=== PATIENT | male | born 1960 | race Caucasian/White ===

== ENCOUNTER → 2017-03-29 09:17 | Emergency (ER) | payer OTHER ==
[2017-03-29 09:32] VITALS: BP 154/94
--- NOTE | 2017-03-29 10:53 | ED ---
Throat Pain/Nasal Congestion - HPI Summary HPI Summary: Patient presents to ED with CC of left eye pain which began last evening after shutting a window. He feels he may have something in the eye. However, after 10 minutes, the pain decreased and went away. Overnight and this morning he did not experience any pain until spontaneously started to feel a pain in the center of his eye. Pain is not worse or better with blinking. Hx of styes, but states feels different. Denies any health problems or any medications. Patient is a smoker. Has never been to an eye doctor, no contacts or glasses and denies any decreased vision. Endorses tearing and erythema of the conjunctiva. Denies sick contacts. Pain is 8/10, constant and burning. - History of Current Complaint Chief Complaint: EDEyeProblem Time Seen by Provider: 03/29/17 09:34 Hx Obtained From: Patient Onset/Duration: Sudden Onset Severity: Moderate Associated Signs And Symptoms: Positive: Negative - Epiglottits Risk Factors Epiglottis Risk Factors: Negative PMH/Surg Hx/FS Hx/Imm Hx Previously Healthy: Yes - Immunization History Hx Pertussis Vaccination: No Immunizations Up to Date: Unable to Obtain/Confirm Infectious Disease History: No Infectious Disease History: Denies: Traveled Outside the [place] in Last 30 Days - Social History Occupation: Employed Full-time Lives: With Family Alcohol Use: Weekly Hx Substance Use: No Substance Use Type: Reports: None Hx Tobacco Use: Yes Smoking Status (MU): Heavy Every Day Tobacco Smoker Review of Systems Constitutional: Negative Positive: Photophobia, Blurred Vision, Drainage, Erythema ENT: Negative Cardiovascular: Negative Respiratory: Negative Positive: no symptoms reported, see HPI Musculoskeletal: Negative Neurological: Negative Psychological: Normal All Other Systems Reviewed And Are Negative: Yes Physical Exam Triage Information Reviewed: Yes Vital Signs On Initial Exam: Initial Vitals Temp Pulse Resp BP Pulse Ox 98.4 F 71 16 154/94 99 03/29/17 09:31 03/29/17 09:31 03/29/17 09:31 03/29/17 09:31 03/29/17 09:31 Vital Signs Reviewed: Yes Appearance: Positive: Well-Appearing, Well-Nourished Skin: Positive: Warm, Skin Color Reflects Adequate Perfusion Head/Face: Positive: Normal Head/Face Inspection Eyes: Positive: Conjunctiva Inflammed, Discharge - copious clear fluid Neck: Positive: Supple, No Lymphadenopathy Respiratory/Lung Sounds: Positive: Clear to Auscultation, Breath Sounds Present Cardiovascular: Positive: Normal, RRR, Pulses are Symmetrical in both Upper and Lower Extremities Musculoskeletal: Positive: Normal, Strength/ROM Intact Neurological: Positive: Speech Normal Psychiatric: Positive: Normal Diagnostics - Vital Signs Vital Signs Temp Pulse Resp BP Pulse Ox 03/29/17 10:16 98.4 F 71 16 154/94 97 03/29/17 09:31 98.4 F 71 16 154/94 99 - Laboratory Lab Statement: Any lab studies that have been ordered have been reviewed, and results considered in the medical decision making process. EENT Course/Dx - Course Course Of Treatment: Patient evaluated for conjunctivitis vs FB vs abrasion vs. keratitis vs ocular trauma or periocular trauma. He denies sunlight gupta, recent illness or sick contacts. He feels there is a FB in the eye. After scanning the eye with fluorosceine uptake using tetracaine analgesic, the upper and lower lids retracted to allow for assessment of FB under the eye lids. No obvious perforation with teardrop pupil, vitreous extrusion, or protruding intraocular foreign body. No orbital compartment syndrome, hyphema, subconjunctival hemorrhage, evidence of increased intraorbital pressure or evidence of abrasions. Patient is made aware that provider is unable to see a FB or abrasions on uptake. However, d/t pain and possible injury to the eye with PE showing conjuntival erythema, will treat for possible FB with abrasion not seen on fluoroscein with polymyxin-trimethoprim abx drops and pain mangement. Patient is encouraged to follow up with opthomology today if symptoms persist. Patient agrees to plan and is discharged to home. - Differential Diagnoses Differential Diagnoses: Conjunctivitis, Corneal Abrasion, Foreign Body, Keratitis - Diagnoses Provider Diagnoses: Foreign body, eye Discharge - Discharge Plan Condition: Stable Disposition: HOME Prescriptions: Polymyx/Trimethoprim OPTH* [Polytrim OPHTH*] 1 drop LEFT EYE Q3H #1 btl traMADol TAB* [Ultram*] 50 mg PO Q12H PRN #5 tab MDD 2 PRN Reason: Pain Patient Education Materials: Polymyxin B/Trimethoprim (Into the eye) Referrals: Eduardo Holliday MD [Medical Doctor] - Chris Patel MD [Primary Care Provider] - Additional Instructions: Follow up with opthomology if symptoms become worse or do not improve Continue with polymyxin drops every 3 hours for 7 days You may continue to use over the counter eye drops for relief of symptoms Ibuprofen 600mg three times daily as needed for pain Tramadol is given to you for pain not well controlled with ibuprofen
== END | disposition home or self-care (01) ==
LOC: ED 09:17
DX: T15.92XA Foreign body on external eye, part unspecified, left eye, initial encounter (principal); H53.149 Visual discomfort, unspecified; H53.8 Other visual disturbances; F17.210 Nicotine dependence, cigarettes, uncomplicated
CPT/HCPCS: 99282